=== PATIENT | male | born 1980 | race Caucasian/White ===

== ENCOUNTER 2016-07-20 21:05 | Emergency (ER) | payer OTHER ==
[2016-07-20 21:12] VITALS: TEMP 99.1; BMI 44.2
--- NOTE | 2016-07-20 21:55 | PDOC ---
History of Present Illness - General History Source: Patient Exam Limitations: No Limitations - History of Present Illness Initial Comments: 07/20/16 21:55 The patient is a 36 year old male, with a significant past medical history of asthma, hypertension, diabetes and obesity, who presents to the emergency department with nonradiating midsternal chest discomfort for the past 4 days. The patient additionally reports associated shortness of breath in addition to a productive cough. The patient states that he has been coughing up yellow tinged sputum. Over the past 4 days, his symptoms have persisted so he decided to visit the ED for evaluation. The patient denies a family history or heart disease or cardiac issues. The patient denies fever, chills, nasal congestion, sore throat, nausea, vomiting or any recent illnesses. Allergies: None reported. Past Surgical History: None reported. Social History: Former smoker (quit 7 years ago). Denies alcohol or drug use. PCP: Dr. Earlene Jones <Saundra Gutierrez - Last Filed: 07/20/16 21:55> <Sunitha Wood - Last Filed: 07/21/16 02:41> - General Chief Complaint: Shortness of Breath Stated Complaint: SOB, CHEST PAIN, COUGH Time Seen by Provider: 07/20/16 21:25 Past History <Saundra Gutierrez - Last Filed: 07/20/16 21:55> - Past Medical History Asthma: Yes Diabetes: Yes HTN: Yes - Psycho/Social/Smoking Cessation Hx Anxiety: No Suicidal Ideation: No Smoking History: Former smoker Have you smoked in the past 12 months: No Information on smoking cessation initiated: No Hx Alcohol Use: No Substance Use Type: None <Sunitha Wood - Last Filed: 07/21/16 02:41> - Past Medical History Allergies/Adverse Reactions: Allergies Allergy/AdvReac Type Severity Reaction Status Date / Time No Known Allergies Allergy Verified 07/20/16 21:06 Home Medications: Ambulatory Orders Albuterol Sulfate Inhaler - [Ventolin Hfa Inhaler -] 1 - 2 inh PO QID PRN Atorvastatin Ca [Lipitor] 20 mg PO HS 07/20/16 Lisinopril 10 mg PO DAILY 07/20/16 Metformin HCl [Glucophage] 1,000 mg PO BID 07/20/16 Sulfamethoxazole/Trimethoprim [Bactrim Ds Tablet] 1 each PO BID #14 tablet 07/20 Review of Systems - Review of Systems Able to Perform ROS?: Yes Comments:: 07/20/16 21:55 CONSTITUTIONAL: Absent: fever, no chills, no fatigue EYES: Absent: visual changes ENT: Absent: ear pain, no sore throat CARDIOVASCULAR: Present: +Chest discomfort Absent: no palpitations RESPIRATORY: Present: +Cough, SOB GI: Absent: abdominal pain, no nausea, no vomiting, no constipation, no diarrhea GENITOURINARY: Absent: dysuria, no frequency, no hematuria MUSCULOSKELETAL: Absent: back pain, no arthralgia, no myalgia SKIN: Absent: rash NEURO: Absent: headache <IndependenceSaundra azevedo - Last Filed: 07/20/16 21:55> *Physical Exam - Vital Signs Last Vital Signs Temp Pulse Resp BP Pulse Ox 99.1 F 122 H 24 188/124 99 07/20/16 21:05 07/20/16 21:05 07/20/16 21:05 07/20/16 21:05 07/20/16 21:05 - Physical Exam Comments: 07/20/16 21:56 GENERAL: Obese. The patient is awake, alert, and fully oriented, in no acute distress. HEAD: Normal with no signs of trauma. EYES: Pupils equal, round and reactive to light, extraocular movements intact, sclera anicteric, conjunctiva clear with no pallor. ENT: Ears normal, nares patent, oropharynx clear without exudates. Moist mucous membranes. NECK: Normal range of motion, supple without lymphadenopathy, JVD, or masses. CHEST: Tenderness of the lower mid chest wall extending to the bilateral costal margins. LUNGS: Breath sounds equal, clear to auscultation bilaterally. No wheeze/ crackles. HEART: Regular rate and rhythm, normal S1 and S2 without murmur or rub. ABDOMEN: Soft/nontender/nondistended. BS wnl. No guarding or rebound. No palpable masses. No hepatosplenomegaly. EXTREMITIES: Normal range of motion, no edema. No clubbing or cyanosis. No cords , erythema, or tenderness. NEUROLOGICAL: Cranial nerves II through XII intact. Normal speech, normal gait. PSYCH: Normal mood, normal affect. SKIN: Warm, dry, normal turgor, no rashes or lesions noted. <Saundra Gutierrez - Last Filed: 07/20/16 21:55> - Vital Signs Last Vital Signs Temp Pulse Resp BP Pulse Ox 99.1 F 122 H 24 188/124 99 07/20/16 21:05 07/20/16 21:05 07/20/16 21:05 07/20/16 21:05 07/20/16 21:05 <Sunitha Wood - Last Filed: 07/21/16 02:41> Medical Decision Making - Medical Decision Making Documentation has been prepared under my direction and personally reviewed by me in its entirety. I attest that this documented accurately reflects all work, treatment, procedures and medical decision making performed by me. As noted above, this 36-year-old man with a history of hypertension/diabetes mellitus and asthma presents with productive cough and pressure-like discomfort in bilateral lower chest . He has no associated diaphoresis/nausea/radiation of pain. Patient had recently been evaluated at his medical doctor's office ( his doctor was not in at the time but patient had prescriptions filled by mid- level practitioner) Exam as noted. Because the patient has significant number of risk factors for coronary artery disease ( HTN, DM, smoking history, obesity), twelve-lead electrocardiogram was performed. EKG revealed sinus tachycardia at 104 beats for minute; otherwise axis, wave forms and intervals are all normal. No evidence of acute ST or T-wave abnormalities. Although no significant rhonchi/wheezing was heard on lung exam, chest x-ray was performed because of patient's productive cough. Chest x-ray preliminary interpretation by me : no effusions, infiltrates or other acute pathology Although the patient's vital signs were significantly hyperdynamic on presentation, repeat measurement showed decrease of his heart rate as well as his blood pressure. His diastolic blood pressure continued to be abnormally high (105 mm Hg), he states that he just resumed taking his antihypertensive today. Because of the patient's history of asthma and productive cough, patient will be given a prescription for Bactrim DS which he should take twice a day for the next week. He should follow-up with his PMD within the next week. He is been advised to call the office tomorrow to arrange this follow-up, meanwhile, he should continue all his medications as previously prescribed. He should return to the emergency room if he has any worsening of his cough, worsening of his pain or develops shortness of breath/high fever. <Sunitha Wood - Last Filed: 07/21/16 02:41> *DC/Admit/Observation/Transfer - Attestations Scribe Attestion: 07/20/16 21:56 Documentation prepared by Saundra Gutierrez, acting as manager medical affairs for Sunitha Wood MD. <Saundra Gutierrez - Last Filed: 07/20/16 21:55> <Suntiha Wood - Last Filed: 07/21/16 02:41> Diagnosis at time of Disposition: Acute bronchitis Qualifiers: Bronchitis organism: unspecified organism Qualified Code(s): J20.9 - Acute bronchitis, unspecified Asthma Qualifiers: Asthma severity: mild persistent - Discharge Dispostion Disposition: HOME Condition at time of disposition: Stable - Prescriptions Prescriptions: Sulfamethoxazole/Trimethoprim [Bactrim Ds Tablet] 1 each PO BID #14 tablet - Referrals Referrals: Earlene Jones MD [Primary Care Provider] - Call tomorrow - Patient Instructions Printed Discharge Instructions: DI for Acute Bronchitis Additional Instructions: bactrimDS twice a day for 1 week continue all other medications as prescribed call your doctor tomorrow to arrange followup within 1 week return to ER if chest pain worsens or you have shortness of breath/nausea/ sweating
[2016-07-20 22:05] VITALS: BP 162/105; PULSE 100
[2016-07-20] MEDS ORDERED: SULFAMETHOXAZOLE/TRIMETHOPRIM 800MG/160MG D.S. TABLET PO ONE (22:51)
[2016-07-20] MEDS ORDERED: SULFAMETHOXAZOLE/TRIMETHOPRIM 800MG/160MG D.S. TABLET ONE (22:52)
--- NOTE | 2016-07-21 23:36 | EKG ---
Test Reason : Blood Pressure : / mmHG Vent. Rate : 104 BPM Atrial Rate : 104 BPM P-R Int : 146 ms QRS Dur : 094 ms QT Int : 358 ms P-R-T Axes : 049 044 032 degrees QTc Int : 470 ms SINUS TACHYCARDIA OTHERWISE NORMAL ECG NO PREVIOUS ECGS AVAILABLE Confirmed by ESME CEBALLOS MD ([id number]) on 07/21/2016 11:35:39 PM Referred By: DR KLINE Confirmed By:ESME CEBALLOS MD
== END 2016-07-20 22:59 | disposition home or self-care (01) ==
LOC: FER 21:05
DX: J20.9 Acute bronchitis, unspecified (principal); I10 Essential (primary) hypertension; J45.909 Unspecified asthma, uncomplicated; E11.9 Type 2 diabetes mellitus without complications; E66.9 Obesity, unspecified; Z87.891 Personal history of nicotine dependence
CPT/HCPCS: 71020-TC; 93005; 99283-25

== ENCOUNTER → 2016-07-24 | Emergency (ER) | payer OTHER ==
[~2016-07-24] MED LIST: FAMOTIDINE 20 MG/50 ML IVPB 50 ML IVPB ONE; MAG HYDROX/AL HYDROX/SIMETH 30 ML UNIT-DOSE CUP ONE; MAG HYDROX/AL HYDROX/SIMETH 30 ML UNIT-DOSE CUP PO ONE; PANTOPRAZOLE 40 MG TABLET (FP) ONE; PANTOPRAZOLE 40 MG TABLET (FP) PO ONE; SUCRALFATE 1 GM TABLET (FP) ONE; SUCRALFATE 1 GM TABLET (FP) PO ONE; methylPREDNISolone NA SUCC 125 MG/2 ML VIAL ONE
[2016-07-24 21:47] VITALS: BP 140/86; PULSE 117; TEMP 98.5; BMI 44.2
[2016-07-24 22:23] LABS: EOSINOPHIL 0.9 % (0-4.5); MCH 29.4 pg (25.7-33.7); MCHC 33.9 g/dl (32.0-35.9); MEAN CELL VOLUME 86.6 fl (80-96); MEAN PLT VOLUME 10.4 fl (7.5-11.1); NEUTROPHILS 68.9 % (42.8-82.8); PLATELET COUNT 211 K/MM3 (134-434); RDW 13.2 % (11.9-15.9); WHITE BLOOD COUNT 9.2 K/mm3 (4.0-10.0)
[2016-07-24 23:02] LABS: ALBUMIN 4.2 g/dl (3.4-5.0); ANION GAP 11 (8-16); CALCIUM 9.2 mg/dL (8.5-10.1); CO2 26 mmol/L (21-32); COCKROFT - GAULT 150.33; CREATININE 1.1 mg/dL (0.7-1.3); GLUCOSE,RANDOM 191 mg/dL (74-106); SGOT/AST 17 U/L (15-37); SGPT/ALT 42 U/L (12-78)
[2016-07-24 23:05] LABS: ALK PHOS 100 U/L (45-117); BILIRUBIN,TOTAL 0.5 mg/dL (0.2-1.0); TOT PROT 7.6 g/dl (6.4-8.2); TROPONIN I < 0.02 ng/ml (0.00-0.05)
--- NOTE | 2016-07-24 23:33 | PDOC ---
History of Present Illness - General History Source: Patient Exam Limitations: No Limitations <Tyron Harrison - Last Filed: 07/24/16 23:48> - General History Source: Patient, Old Records Exam Limitations: No Limitations - History of Present Illness Initial Comments: 07/24/16 23:49 The patient is a 36 year old male, with a significant past medical history of asthma, hypertension, diabetes and obesity, who presents to the emergency department with chest discomfort since earlier today. The patient states that his symptoms began approximately an hour after he ate a lee egg and cheese sandwich. The patient states that his chest discomfort is exacerbated when lying down and is alleviated when standing or sitting upright. The patient was most recently seen in this ED on 07/20/2016 for chest pain, shortness of breath and a cough. He had a chest x-ray done and was discharged home on Bactrim for acute bronchitis, which he states he has been taking. Currently in the ED, the patient reports that his cough has resolved. The patient denies shortness of breath. The patient denies fever, chills, nausea or vomiting. The patient denies a past or family history of heart disease or cardiac related issues. Allergies: None reported. Past Surgical History: None reported. Social History: Former smoker (quit 7 years ago). Denies alcohol or drug use. PCP: Dr. Earlene Jones <Saundra Gutierrez - Last Filed: 07/24/16 23:50> - General Chief Complaint: Shortness of Breath Stated Complaint: ASTHMA ATTACK Time Seen by Provider: 07/24/16 21:49 Past History - Past Medical History Asthma: Yes Diabetes: Yes HTN: Yes - Psycho/Social/Smoking Cessation Hx Anxiety: No Suicidal Ideation: No Smoking History: Former smoker Have you smoked in the past 12 months: No If you are a former smoker, when did you quit?: 7 years ago Information on smoking cessation initiated: No Hx Alcohol Use: No Substance Use Type: None <Tyron Harrison - Last Filed: 07/24/16 23:48> <Saundra Gutierrez - Last Filed: 07/24/16 23:50> - Past Medical History Allergies/Adverse Reactions: Allergies Allergy/AdvReac Type Severity Reaction Status Date / Time No Known Allergies Allergy Verified 07/24/16 21:43 Home Medications: Ambulatory Orders Albuterol Sulfate Inhaler - [Ventolin Hfa Inhaler -] 1 - 2 inh PO QID PRN Atorvastatin Ca [Lipitor] 20 mg PO HS 07/20/16 Lisinopril 10 mg PO DAILY 07/20/16 Metformin HCl [Glucophage] 1,000 mg PO BID 07/20/16 Sulfamethoxazole/Trimethoprim [Bactrim Ds Tablet] 1 each PO BID #14 tablet 07/20 Pantoprazole Sodium [Protonix] 40 mg PO DAILY #30 tablet. 07/24/16 Ranitidine HCl [Zantac] 150 mg PO BID PRN #20 tablet 07/24/16 Review of Systems - Review of Systems Able to Perform ROS?: Yes Comments:: 07/24/16 23:50 GENERAL/CONSTITUTIONAL: No fever or chills. No weakness. HEAD, EYES, EARS, NOSE AND THROAT: No change in vision. No ear pain or discharge. No sore throat. CARDIOVASCULAR: +Chest discomfort. No shortness of breath. RESPIRATORY: No cough, wheezing, or hemoptysis. GASTROINTESTINAL: No nausea, vomiting, diarrhea or constipation. GENITOURINARY: No dysuria, frequency, or change in urination. MUSCULOSKELETAL: No joint or muscle swelling or pain. No neck or back pain. SKIN: No rash. NEUROLOGIC: No headache, vertigo, loss of consciousness, or change in strength/ sensation. ENDOCRINE: No increased thirst. No abnormal weight change. HEMATOLOGIC/LYMPHATIC: No anemia, easy bleeding, or history of blood clots. ALLERGIC/IMMUNOLOGIC: No hives or skin allergy. <Saundra Gutierrez - Last Filed: 07/24/16 23:50> *Physical Exam - Vital Signs Last Vital Signs Temp Pulse Resp BP Pulse Ox 98.5 F 117 H 20 140/86 96 07/24/16 21:43 07/24/16 21:43 07/24/16 21:43 07/24/16 21:43 07/24/16 21:43 <Tyron Harrison - Last Filed: 07/24/16 23:48> - Vital Signs Last Vital Signs Temp Pulse Resp BP Pulse Ox 98.5 F 117 H 20 140/86 96 07/24/16 21:43 07/24/16 21:43 07/24/16 21:43 07/24/16 21:43 07/24/16 21:43 - Physical Exam Comments: 07/24/16 23:36 GENERAL: Obese. Awake, alert, and fully oriented, in no acute distress. HEAD: No signs of trauma. EYES: PERRLA, EOMI, sclera anicteric, conjunctiva clear. ENT: Auricles normal inspection, hearing grossly normal, nares patent, oropharynx clear without exudates. Moist mucosa. NECK: Normal ROM, supple, no lymphadenopathy, JVD, or masses. LUNGS: Breath sounds equal, clear to auscultation bilaterally. No wheezes, and no crackles. HEART: Regular rate and rhythm, normal S1 and S2, no murmurs, rubs or gallops. ABDOMEN: Epigastric discomfort. Soft, normoactive bowel sounds. No guarding, no rebound. No masses. EXTREMITIES: Normal range of motion, no edema. No clubbing or cyanosis. No cords , erythema, or tenderness. NEUROLOGICAL: Cranial nerves II through XII intact. Normal speech, normal gait. SKIN: Warm, dry, normal turgor, no rashes or lesions noted. <Saundra Gutierrez - Last Filed: 07/24/16 23:50> Heart Score/ECG Review - History History: Slightly suspicious - Electrocardiogram EKG: Normal - Age Age: </= 45 - Risk Factors Based on the list above the patient has:: >/=3 risk factors or Hx atherosclerotic disease - Troponin Troponin: </= normal limit - Score Heart Score - Total: 2 #1 ECG reviewed & interpreted by me at: 22:10 07/24/16 23:33 NSr 107, no std/kimberly, TWI III, normal axis, normal intervals, QTC 453 msec <Tyron Harrison - Last Filed: 07/24/16 23:48> ED Treatment Course - LABORATORY CBC & Chemistry Diagram: 07/24/16 22:10 07/24/16 22:10 - ADDITIONAL ORDERS Additional order review: Laboratory Results 07/24/16 22:10 Sodium 137 Potassium 4.0 Chloride 100 Carbon Dioxide 26 Anion Gap 11 BUN 15 Creatinine 1.1 Creat Clearance w eGFR > 60 Random Glucose 191 H Calcium 9.2 Total Bilirubin 0.5 AST 17 ALT 42 Alkaline Phosphatase 100 Creatine Kinase 117 Troponin I < 0.02 Total Protein 7.6 Albumin 4.2 Lipase 139 07/24/16 22:10 RBC 5.06 MCV 86.6 MCHC 33.9 RDW 13.2 MPV 10.4 Neutrophils % 68.9 Lymphocytes % 20.1 Monocytes % 9.1 Eosinophils % 0.9 Basophils % 1.0 - Medications Given in the ED: ED Medications Discontinued Medications Generic Name Dose Route Start Last Admin Trade Name Melissa PRN Reason Stop Dose Admin Al Hydroxide/Mg Hydroxide 30 ml 07/24/16 22:04 07/24/16 23:01 Mylanta Oral Suspension - PO 07/24/16 22:05 30 ml ONCE ONE Administration Famotidine/Sodium Chloride 50 mls @ 100 mls/hr 07/24/16 22:04 07/24/16 23:01 Pepcid 20 Mg Premixed Ivpb - IVPB 07/24/16 22:33 100 mls/hr ONCE ONE Administration Sucralfate 1 gm 07/24/16 22:04 07/24/16 23:01 Carafate - PO 07/24/16 22:05 1 gm ONCE ONE Administration <Tyron Harrison - Last Filed: 07/24/16 23:48> - LABORATORY CBC & Chemistry Diagram: 07/24/16 22:10 07/24/16 22:10 - ADDITIONAL ORDERS Additional order review: Laboratory Results 07/24/16 22:10 Sodium 137 Potassium 4.0 Chloride 100 Carbon Dioxide 26 Anion Gap 11 BUN 15 Creatinine 1.1 Creat Clearance w eGFR > 60 Random Glucose 191 H Calcium 9.2 Total Bilirubin 0.5 AST 17 ALT 42 Alkaline Phosphatase 100 Creatine Kinase 117 Troponin I < 0.02 Total Protein 7.6 Albumin 4.2 Lipase 139 07/24/16 22:10 RBC 5.06 MCV 86.6 MCHC 33.9 RDW 13.2 MPV 10.4 Neutrophils % 68.9 Lymphocytes % 20.1 Monocytes % 9.1 Eosinophils % 0.9 Basophils % 1.0 - Medications Given in the ED: ED Medications Discontinued Medications Generic Name Dose Route Start Last Admin Trade Name Melissa PRN Reason Stop Dose Admin Al Hydroxide/Mg Hydroxide 30 ml 07/24/16 22:04 07/24/16 23:01 Mylanta Oral Suspension - PO 07/24/16 22:05 30 ml ONCE ONE Administration Famotidine/Sodium Chloride 50 mls @ 100 mls/hr 07/24/16 22:04 07/24/16 23:01 Pepcid 20 Mg Premixed Ivpb - IVPB 07/24/16 22:33 100 mls/hr ONCE ONE Administration Sucralfate 1 gm 07/24/16 22:04 07/24/16 23:01 Carafate - PO 07/24/16 22:05 1 gm ONCE ONE Administration <Saundra Gutierrez - Last Filed: 07/24/16 23:50> Medical Decision Making - Medical Decision Making 07/24/16 23:30 A portion of this note was documented by scribe services under my direction. I have reviewed the details of the note, within reason, and agree with the documentation with the following case summary and management plan written by me. Patient treated in the ED. Nursing notes are reviewed and incorporated into the medical decision-making. Vital signs reviewed. Peripheral IV access obtained by the nurse, laboratory studies are drawn and sent, reviewed and interpreted by myself. Vital Signs Temp Pulse Resp BP Pulse Ox 98.5 F 117 H 20 140/86 96 07/24/16 21:43 07/24/16 21:43 07/24/16 21:43 07/24/16 21:43 07/24/16 21:43 36-year-old male with past medical history of asthma, hypertension, hyperlipidemia, obesity presents with atypical chest pain. Patient was seen at [facility] approximately one week ago for coughing. At that time, the patient had a chest x-ray and was prescribed Bactrim twice a day for bronchitis which she has been adherent to. Reports that his coughing is improved and resolved. However, prior to arrival, patient was eating a lee sandwich at 5 pm. About an hour, later developed these symptoms. I have low suspicion for cardiac. He reports that standing up resolves the symptoms and laying down worsens the symptoms. Patient was given GERD medications and his symptoms improved. CBC, BMP 07/24/16 22:10 07/24/16 22:10 CMP Sodium 137 mmol/L (136-145) 07/24/16 22:10 Potassium 4.0 mmol/L (3.5-5.1) 07/24/16 22:10 Chloride 100 mmol/L (98-107) 07/24/16 22:10 Carbon Dioxide 26 mmol/L (21-32) 07/24/16 22:10 Anion Gap 11 (8-16) 07/24/16 22:10 BUN 15 mg/dL (7-18) 07/24/16 22:10 Creatinine 1.1 mg/dL (0.7-1.3) 07/24/16 22:10 Creat Clearance w eGFR > 60 (>60) 07/24/16 22:10 Random Glucose 191 mg/dL (74-106) H 07/24/16 22:10 Calcium 9.2 mg/dL (8.5-10.1) 07/24/16 22:10 Total Bilirubin 0.5 mg/dL (0.2-1.0) 07/24/16 22:10 AST 17 U/L (15-37) 07/24/16 22:10 ALT 42 U/L (12-78) 07/24/16 22:10 Alkaline Phosphatase 100 U/L (45-117) 07/24/16 22:10 Creatine Kinase 117 IU/L (39-308) 07/24/16 22:10 Troponin I < 0.02 ng/ml (0.00-0.05) 07/24/16 22:10 Total Protein 7.6 g/dl (6.4-8.2) 07/24/16 22:10 Albumin 4.2 g/dl (3.4-5.0) 07/24/16 22:10 Lipase 139 U/L (73-393) 07/24/16 22:10 07/24/16 23:44 Will initiate protonix and zantac and have the patient follow up with PMD. ECG is reassuring. I discussed the physical exam findings, ancillary test results and final diagnoses with the patient. I answered all of the patient's questions. The patient was satisfied with the care received and felt comfortable with the discharge plan and treatment plan. The patient will call their primary care physician within 24 hours to arrange follow-up and will return to the Emergency Department with any new, persistant or worsening symptoms. <Tyron Harrison - Last Filed: 07/24/16 23:48> *DC/Admit/Observation/Transfer - Discharge Dispostion Admit: No <Tyron Harrison - Last Filed: 07/24/16 23:48> - Attestations Scribe Attestion: 07/24/16 23:35 Documentation prepared by Saundra Gutierrez, acting as medical cash poster for Tyron Harrison MD. <Saundra Gutierrez - Last Filed: 07/24/16 23:50> Diagnosis at time of Disposition: Atypical chest pain - Discharge Dispostion Disposition: HOME Condition at time of disposition: Improved - Prescriptions Prescriptions: Pantoprazole Sodium [Protonix] 40 mg PO DAILY #30 tablet. Ranitidine HCl [Zantac] 150 mg PO BID PRN #20 tablet PRN Reason: GERD - Referrals Referrals: Earlene Jones MD [Primary Care Provider] - - Patient Instructions Printed Discharge Instructions: DI for Atypical Chest Pain, DI for Gastroesophageal Reflux Disease (GERD) Additional Instructions: Take the protonix daily. For additional relief, take a tablet of zantac every 12 hours as needed for additional relief. Please avoid greasy foods. Follow up with your doctor.
--- NOTE | 2016-07-25 16:20 | EKG ---
Test Reason : Blood Pressure : / mmHG Vent. Rate : 107 BPM Atrial Rate : 107 BPM P-R Int : 142 ms QRS Dur : 090 ms QT Int : 340 ms P-R-T Axes : 053 065 036 degrees QTc Int : 453 ms SINUS TACHYCARDIA OTHERWISE NORMAL ECG WHEN COMPARED WITH ECG OF 20-JUL-2016 21:58, NO SIGNIFICANT CHANGE WAS FOUND Confirmed by BRANDON HARMON MD ([id number]) on 07/25/2016 4:19:47 PM Referred By: Confirmed By:BRANDON HARMON MD
== END | disposition home or self-care (01) ==
LOC: JER 21:37
PROC: 3E033GC Introduction of Other Therapeutic Substance into Peripheral Vein, Percutaneous Approach (ICD-10-PCS; principal; 2016-07-24)
DX: R07.89 Other chest pain (principal); J45.909 Unspecified asthma, uncomplicated; I10 Essential (primary) hypertension; E11.9 Type 2 diabetes mellitus without complications; Z79.84 Long term (current) use of oral hypoglycemic drugs
CPT/HCPCS: 36415; 80053; 82550; 83690; 84484; 85025; 93005; 93010; 96365; 99281-25

== ENCOUNTER 2016-08-12 20:36 | Emergency (ER) | payer OTHER ==
--- NOTE | 2016-08-12 20:44 | PDOC ---
History of Present Illness - General History Source: Patient Exam Limitations: No Limitations - History of Present Illness Initial Comments: 08/12/16 20:54 The patient is a 36 year old male presenting with his mother, with a significant past medical history of asthma, diabetes, HTN and acid reflux, who presents to the emergency department with throat swelling sensation. He states that he ate Guacamole today but did not feel anything at the time but eventually did afterwards. He denies any trouble swallowing or breathing at this time. He notes that he is afraid that something may be stuck in his throat. The patient denies chest pain, shortness of breath, headache and dizziness. Denies fever, chills, nausea, vomit, diarrhea and constipation. Allergies: None Past surgical history: None reported Social history: No alcohol, tobacco or drug use reported <Jeffrey Hdz - Last Filed: 08/12/16 21:14> <Philip Nolasco - Last Filed: 08/12/16 22:18> - General Chief Complaint: Tongue Swelling Stated Complaint: DIFFICULTY BREATHING Time Seen by Provider: 08/12/16 20:43 Past History <Jeffrey Hdz - Last Filed: 08/12/16 21:14> - Past Medical History Asthma: Yes Diabetes: Yes HTN: Yes - Psycho/Social/Smoking Cessation Hx Anxiety: No Suicidal Ideation: No Smoking History: Former smoker Have you smoked in the past 12 months: No If you are a former smoker, when did you quit?: 7 years ago Hx Alcohol Use: No Substance Use Type: None <Philip Nolasco - Last Filed: 08/12/16 22:18> - Past Medical History Allergies/Adverse Reactions: Allergies Allergy/AdvReac Type Severity Reaction Status Date / Time No Known Allergies Allergy Verified 07/24/16 21:43 Home Medications: Ambulatory Orders Albuterol Sulfate Inhaler - [Ventolin Hfa Inhaler -] 1 - 2 inh PO QID PRN Atorvastatin Ca [Lipitor] 20 mg PO HS 07/20/16 Lisinopril 10 mg PO DAILY 07/20/16 Metformin HCl [Glucophage] 1,000 mg PO BID 07/20/16 Sulfamethoxazole/Trimethoprim [Bactrim Ds Tablet] 1 each PO BID #14 tablet 07/20 Pantoprazole Sodium [Protonix] 40 mg PO DAILY #30 tablet. 07/24/16 Ranitidine HCl [Zantac] 150 mg PO BID PRN #20 tablet 07/24/16 Diphenhydramine HCl [Benadryl -] 25 mg PO Q8H #21 capsule 08/12/16 Methylprednisolone [Medrol Dose Gus] 4 mg PO ASDIR #21 tablet 08/12/16 Ranitidine HCl [Zantac] 300 mg PO TID #30 tablet MDD 3 08/12/16 Review of Systems - Review of Systems Able to Perform ROS?: Yes Comments:: 08/12/16 20:52 GENERAL/CONSTITUTIONAL: No fever or chills. No weakness. HEAD, EYES, EARS, NOSE AND THROAT: +Throat swelling sensation. No change in vision. No ear pain or discharge. No sore throat. CARDIOVASCULAR: No chest pain or shortness of breath RESPIRATORY: No cough, wheezing, or hemoptysis. GASTROINTESTINAL: No nausea, vomiting, diarrhea or constipation. GENITOURINARY: No dysuria, frequency, or change in urination. MUSCULOSKELETAL: No joint or muscle swelling or pain. No neck or back pain. SKIN: No rash NEUROLOGIC: No headache, vertigo, loss of consciousness, or change in strength/ sensation. ENDOCRINE: No increased thirst. No abnormal weight change HEMATOLOGIC/LYMPHATIC: No anemia, easy bleeding, or history of blood clots. ALLERGIC/IMMUNOLOGIC: No hives or skin allergy. <Jeffrey Hdz - Last Filed: 08/12/16 21:14> *Physical Exam - Vital Signs Last Vital Signs Temp Pulse Resp BP Pulse Ox 98.2 F 79 21 154/103 99 08/12/16 20:36 08/12/16 20:36 08/12/16 20:36 08/12/16 20:36 08/12/16 20:36 - Physical Exam Comments: 08/12/16 20:51 GENERAL: Awake, alert, and fully oriented, in no acute distress HEAD: No signs of trauma, normocephalic, atraumatic EYES: PERRLA, EOMI, sclera anicteric, conjunctiva clear ENT: Auricles normal inspection, hearing grossly normal, nares patent, oropharynx clear without exudates. Moist mucosa NECK: Normal ROM, supple, no lymphadenopathy, JVD, or masses LUNGS: No distress, speaks full sentences, clear to auscultation bilaterally HEART: Regular rate and rhythm, normal S1 and S2, no murmurs, rubs or gallops, peripheral pulses normal and equal bilaterally. ABDOMEN: Soft, nontender, normoactive bowel sounds. No guarding, no rebound. No masses EXTREMITIES: Normal inspection, Normal range of motion, no edema. No clubbing or cyanosis. NEUROLOGICAL: Cranial nerves II through XII grossly intact. Normal speech, normal gait, no focal sensorimotor deficits SKIN: Warm, Dry, normal turgor, no rashes or lesions noted. <Jeffrey Hdz - Last Filed: 08/12/16 21:14> *DC/Admit/Observation/Transfer - Attestations Scribe Attestion: 08/12/16 20:52 Documentation prepared by Jeffrey Hdz, acting as medical chief technician for Philip Nolasco DO <Jeffrey Hdz - Last Filed: 08/12/16 21:14> - Discharge Dispostion Admit: No - Attestations Physician Attestion: 08/12/16 20:44 I, Dr. Philip Nolasco, attest that this document has been prepared under my direction and personally reviewed by me in its entirety. I further attest, that it accurately reflects all work, treatment, procedures and medical decision -making performed by me. <Philip Nolasco - Last Filed: 08/12/16 22:18> Diagnosis at time of Disposition: Tongue swelling Allergic reaction Qualifiers: Encounter type: initial encounter Qualified Code(s): T78.40XA - Allergy, unspecified, initial encounter - Discharge Dispostion Disposition: HOME Condition at time of disposition: Fair - Prescriptions Prescriptions: Diphenhydramine HCl [Benadryl -] 25 mg PO Q8H #21 capsule Methylprednisolone [Medrol Dose Gus] 4 mg PO ASDIR #21 tablet Ranitidine HCl [Zantac] 300 mg PO TID #30 tablet MDD 3 - Referrals Referrals: Earlene Jones MD [Primary Care Provider] - - Patient Instructions Printed Discharge Instructions: DI for Angioedema, Hives Additional Instructions: Cade - Start your meds tonight before going to bed. Follow up with your doctor later this week. Return to us if worse or new symptoms develop. Best- Dr. Philip Nolasco
[2016-08-12 20:55] VITALS: BP 154/103; PULSE 79; TEMP 98.2; BMI 42.5
[2016-08-12] MEDS ORDERED: FAMOTIDINE 20 MG/50 ML IVPB 50 ML IVPB ONE (21:15)
[2016-08-12] MEDS ORDERED: LIDOCAINE VISCOUS 2% ORAL/TOP 20 ML UNIT-DOSE CUP MM ONE (21:19)
[2016-08-12] MEDS ORDERED: MAG HYDROX/AL HYDROX/SIMETH 355 ML ORAL.SUSP PO ONE (21:19)
[2016-08-12] MEDS ORDERED: MAG HYDROX/AL HYDROX/SIMETH 30 ML UNIT-DOSE CUP PO ONE (21:45)
[2016-08-12] MEDS ORDERED: methylPREDNISolone NA SUCC 125 MG/2 ML VIAL IVPB ONE (22:12)
== END 2016-08-12 23:38 | disposition home or self-care (01) ==
LOC: JER 20:36
PROC: 3E033GC Introduction of Other Therapeutic Substance into Peripheral Vein, Percutaneous Approach (ICD-10-PCS; principal; 2016-08-12)
PROC: 3E0333Z Introduction of Anti-inflammatory into Peripheral Vein, Percutaneous Approach (ICD-10-PCS; 2016-08-12)
DX: T78.3XXA Angioneurotic edema, initial encounter (principal); I10 Essential (primary) hypertension; E11.9 Type 2 diabetes mellitus without complications; Z79.84 Long term (current) use of oral hypoglycemic drugs; J45.909 Unspecified asthma, uncomplicated; K21.9 Gastro-esophageal reflux disease without esophagitis
CPT/HCPCS: 70360-TC; 71020-TC; 99282-25